=== PATIENT | male | born 1955 | race Caucasian/White ===

== ENCOUNTER 2018-12-08 04:42 | Inpatient (IN) | payer BC ==
[2018-12-08] MEDS ORDERED: Acetaminophen 500 MG TAB ONE (05:23)
[2018-12-08 05:41] LABS: Band 11 % (5-11); Hemoglobin 16.2 g/dL (14.0-18.0); Lymphocytes 2 % (21-51); MDiff Complete? YES; Mean Corpuscular Hemoglobin 31.8 pg (27.0-31.0); Mean Corpuscular Volume 93.3 fL (78.0-98.0); Mean Platelet Volume 8.6 fL (7.4-10.4); Monocytes 6 % (0-10); Neutrophil 81 % (42-75); Platelet Count 142 thou/uL (130-400); Platelet Morphology Comment Appears Adequate; RBC Morphology Normal; Red Blood Cell (RBC) Count 5.11 mill/uL (4.70-6.10)
[2018-12-08 05:54] LABS: ALT (SGPT) 16 U/L (8-55); AST (SGOT) 12 U/L (5-34); Albumin 3.9 g/dL (3.4-4.8); Alkaline Phosphatase 71 U/L (40-110); Anion Gap 13 mmol/L (10-20); BUN (Urea Nitrogen) 12 mg/dL (8.4-25.7); Bilirubin, Total 1.2 mg/dL (0.2-1.2); CK (CPK) 124 U/L (30-200); Calc. Creatinine Clearance 0 mL/min (70-130); Calcium 8.8 mg/dL (7.8-10.44); Carbon Dioxide 23 mmol/L (23-31); Chloride 101 mmol/L (98-107); Estimated GFR-MDRD 62; Globulin 2.7 g/dL (2.4-3.5); Glucose 104 mg/dL (80-115); Potassium 3.9 mmol/L (3.5-5.1); Protein, Total 6.6 g/dL (5.8-8.1); Sodium 133 mmol/L (136-145)
[2018-12-08] MEDS ORDERED: cefTRIAXone\\ROCEPHIN 1 GM VIAL ONE (06:32)
[2018-12-08 06:57] LABS: Bilirubin Negative (Negative); Blood, Urine 1+ (Negative); Clarity Clear (Clear); Glucose, Urine (Dipstick) Normal (Negative); Leukocyte 500 Leu/uL (Negative); Nitrite Negative (Negative); Protein, Urine (Dipstick) 10 mg/dL (Neg-Trace); Squamous Epithelial 0-3 HPF (0-3); Urobilinogen Normal mg/dL (Less than 2)
[2018-12-08 06:58] LABS: Bacteria/HPF 1+ HPF (None Seen)
--- NOTE | 2018-12-08 07:53 | RAD ---
EXAM: Single view of the chest HISTORY: Chest pain COMPARISON: None FINDINGS: Single view of the chest shows a normal sized cardiomediastinal silhouette. There is no marzena dence of consolidation, mass, or pleural effusion. The bones are unremarkable. IMPRESSION: No evidence of acute cardiopulmonary disease
--- NOTE | 2018-12-08 08:11 | CT ---
CT ANGIOGRAM THORAX WITH IV CONTRAST AND 3-D RECONSTRUCTIONS CLINICAL INDICATION: Dyspnea and associated bilateral lower extremity edema. COMPARISON: None FINDINGS: Pulmonary arteries: There is suboptimal opacification of the subsegmental pulmonary arteries, but no filling defects are seen in the central or segmental pulmonary arteries to suggest a pulmonary embolus. Aorta: Vascular calcifications are seen in the thoracic aorta, but the thoracic aorta is normal in ca liber without evidence of an aortic dissection. Lungs: Calcified granuloma is seen in the right upper lobe. No noncalcified pulmonary nodule, mass, o r pleural effusion is seen within the lungs bilaterally. No consolidation is seen. Mediastinum: Vascular calcifications are seen in the coronary arteries. No enlarged lymph nodes are s een by CT size criteria. Calcified right hilar lymph nodes are identified related to prior granulomatous disease. Thyroid gland: Grossly normal in appearance where visualized. Osseous structures: Degenerative changes are seen in the spine. Chest wall: No abnormality visualized. Upper abdomen: There is evidence of cholelithiasis partially imaged. There is mild diminished attenua tion of the visualized liver suggesting fatty infiltration. IMPRESSION: 1. No CT evidence of a pulmonary embolus involving the central or segmental pulmonary arteries. 2. No pleural effusion, consolidation, or pulmonary nodule is seen in the lungs bilaterally. 3. Cholelithiasis. 4. Fatty infiltration of the liver. 5. Vascular calcifications in the coronary arteries as well as involving the thoracic aorta.
--- NOTE | 2018-12-08 08:20 | CT ---
CT ABDOMEN AND PELVIS WITHOUT IV CONTRAST: INDICATION: Dyspnea. Abdominal pain. FINDINGS: Lung bases are clear. Liver, spleen, and pancreas are unremarkable. There are several small calcified gallstones seen in a mildly contracted gallbladder. No pericholecy stic edema or inflammation apparent. Adrenal glands unremarkable. A 3 cm cyst from the inferior pole of the right kidney. No hydronephrosis. A 2 cm cyst from the superior left kidney. Ureters are normal caliber. The bladder is mildly distended. There is evidence of mild bladder wall thickening and mild pericyst ic inflammatory haziness. Cystitis and/or prostatitis should be excluded. The prostate does not michelle ear significantly enlarged, although the seminal vesicles are prominent. Small bowel loops are normal caliber. Appendix appears normal. Colon unremarkable. Aorta normal ca liber. No adenopathy. IMPRESSION: 1. The urinary bladder shows mild bladder wall thickening and mild pericystic inflammatory change. The seminal vesicles are prominent. Rule out urinary tract infection/cystitis prostatitis. 2. Small renal cystic lesions as described. 3. Cholelithiasis. POS: SARAH
[2018-12-08 08:44] LABS: Troponin I Less than 0.010 ng/mL (< 0.028)
[2018-12-08] MEDS ORDERED: Bisacodyl 10 MG SUPP PR PRN (09:24)
[2018-12-08] MEDS ORDERED: Senokot S 8.6-50 MG TAB PO PRN (09:24)
[2018-12-08] MEDS ORDERED: Ondansetron PF 4 MG/2 ML Vial IVP PRN (09:24)
[2018-12-08] MEDS ORDERED: HYDROcodone/Acetaminophen 5/325 mg Tablet PO PRN (09:24)
[2018-12-08] MEDS ORDERED: Guaifenesin DM 100-10/5 ML UDCUP PO PRN (09:24)
[2018-12-08] MEDS ORDERED: Acetaminophen 325 MG TAB PO PRN (09:24)
[2018-12-08] MEDS ORDERED: ISOVUE-370 76%-LOCM 1 ML ONE (10:13)
[2018-12-08] MEDS ORDERED: Vancomycin HCl 1 GM in Premix Bag 1 BAG IVPB SCH (15:00)
[2018-12-08 15:38] VITALS: BMI 48.1
[2018-12-08] MEDS: cefTRIAXone\\ROCEPHIN 2 GM in Sodium Chloride 0.9% 100 ML IVPB SCH (16:22)
[2018-12-08] MEDS: Sodium Chloride 0.9% 1,000 ML IV SCH ×2 (16:28→22:14)
[2018-12-08] MEDS: methylPREDNISolone Sod Succ 40 MG VIAL IVP SCH ×2 (16:28→21:54)
--- NOTE | 2018-12-08 18:09 | HP ---
REASON FOR ADMISSION: Sepsis, UTI. HISTORY OF PRESENTING ILLNESS: The patient gives history of not feeling well for last 1 week or so. He has been getting off and on chills with rigors and sweating. Last night, this got worse. The patient also developed shortness of breath early this morning. He wears a CPAP machine and removed it this morning and his shortness of breath got even worse. He has no complaints of cough or expectoration. The patient does admit that he has burning sensation at the end of passing urine. He felt feverish at home. On arrival here, had a temperature of 103 in the ER. No complaints of chest pain or palpitation. No complaints of back pain. No complaints of orthopnea or palpitations. PAST MEDICAL AND SURGICAL HISTORY: History of [place] with three stents placed in 2008, obstructive sleep apnea on CPAP, obesity, back surgery for L5 vertebra, left shoulder surgery, and tonsillectomy. CURRENT MEDICATIONS: 1. Aspirin 81 mg p.o. daily. 2. Carvedilol extended release 25 mg daily. 3. Plavix 75 mg daily. The patient takes two medications for cholesterol he does not recall. The patient goes to [facility] and we will try to obtain the same. ALLERGIES: NO KNOWN DRUG ALLERGIES. PERSONAL HISTORY: Quit smoking 3 months back prior to which has smoked 1 pack a day for almost 30 years. Does not abuse alcohol or drugs. FAMILY HISTORY: Both parents are . Mother at the age of 62 years from unknown cancer. Father was a smoker and had COPD/emphysema, at the age of 76 years from complications from it. CODE STATUS: Full. Power of commercial real estate attorney is his daughter, Ms. Mckeon. Number to reach her is [phone]. REVIEW OF SYSTEMS: CONSTITUTIONAL: Negative for weight loss or gain, ability to conduct usual activities. SKIN: Negative for rash, itching. EYES: Negative for double vision, pain. ENT/MOUTH: Negative for nose bleeding, neck stiffness, pain, tenderness. CARDIOVASCULAR: Negative for palpitations, dyspnea on exertion, orthopnea. RESPIRATORY: Negative for shortness of breath, wheezing, cough, hemoptysis, fever or night sweats. GASTROINTESTINAL: Negative for poor appetite, abdominal pain, heartburn, nausea , vomiting, constipation, or diarrhea. GENITOURINARY: Negative for urgency, frequency, dysuria, nocturia. MUSCULOSKELETAL: Negative for pain, swelling. NEUROLOGIC/PSYCHIATRIC: Negative for anxiety, depression. ALLERGY/IMMUNOLOGIC: Negative for skin rash, bleeding tendency. PHYSICAL EXAMINATION: GENERAL: The patient is a 63-year-old male, who is currently not in any acute distress. VITAL SIGNS: Blood pressure 144/86, pulse 96 per minute, respiratory rate is 24 per minute, temperature on arrival was 103.1 degrees Fahrenheit, and saturating 98% on room air. NECK: Supple. No elevated JVD. HEENT: Eyes; extraocular muscles are intact. Pupils are reacting to light. Oral cavity, mucous membranes are dry. No exudates or congestion. CARDIOVASCULAR: S1 and S2 heard. Regular rhythm. RESPIRATORY: Air entry 1+ bilateral. Scattered rhonchi plus bilateral. No wheezes. No rales. There is rhonchi plus. ABDOMEN: Soft. Bowel sounds heard. No tenderness, rigidity, or guarding. No CV angle tenderness. EXTREMITIES: There is nonpitting edema in both lower extremities. There is thickening of skin on the alves on both lower extremities. Peripheral pulses are 1+ bilateral no ischemic ulcerations or gangrene. CENTRAL NERVOUS SYSTEM: No gross focal deficits noted. The patient is alert, awake, and oriented well. PSYCHIATRIC: The patient's mood is euthymic. No hallucinations or delusions. LABORATORY DATA: EKG done shows normal sinus rhythm at 97 beats per minute. No gross ST-T wave changes. There is low-voltage EKG seen. CT abdomen and pelvis without contrast done shows mild bladder wall thickening with pericystic inflammatory change, seminal vesicles are prominent. Findings might suggest cystitis versus prostatitis. Small renal cystic lesions. Cholelithiasis with no evidence of cholecystitis. CT angio chest done shows no evidence of PE. No pleural effusion, consolidation, or pulmonary nodule were seen. Cholelithiasis, fatty liver of liver. There is vascular calcification of the coronary arteries as well as involving thoracic aorta. White count of 18, H and H 16 and 47, platelet count 142, with 81% neutrophils, 11% bands. Electrolytes stable. BUN 12, creatinine 1.1. Troponin x2 negative. Liver enzymes are within normal limits. Albumin is 3.9. Stat cortisol levels at 31.8. BNP 30. CLINICAL IMPRESSION AND PLAN: The patient will be admitted to medical floor for sepsis, urinary tract infection, possible prostatitis. Blood and urine cultures have been obtained. We will place him on ceftriaxone and vancomycin, a small dose of steroids, Solu-Medrol 20 mg IV q.8 hourly, DuoNeb q.6 hourly. He has received 3 L of IV fluid in the ER and will continue him on normal saline at 100 mL/hour. We will obtain consultation with Dr. Christensen as well. The patient likely will need outpatient Urology appointment. Job ID: [id number] MTDD
--- NOTE | 2018-12-08 21:44 | CON ---
DATE OF CONSULTATION: 12/08/2018 REASON FOR CONSULTATION: Shortness of breath, some cough, edema, and urinary symptoms. HISTORY OF PRESENT ILLNESS: A 63-year-old with history of obesity, sleep apnea, CHF, chronic back pain with prior surgeries, who was brought into the hospital after a few days of worsening dyspnea, chills, and genitourinary symptoms with dysuria and difficulty with urination. No headaches, visual symptoms. No abdominal pain. No diarrhea or constipation. No bleeding. No joint symptoms. PAST MEDICAL HISTORY: Sleep apnea, obesity, CHF, back surgeries, shoulder surgery, tonsillectomy. SOCIAL HISTORY: Current smoker. Drinks socially. Lives in [place]. 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 ALLERGIES: NONE. MEDICATIONS: At home include: 1. Plavix. 2. Coreg. 3. Aspirin. CURRENT MEDICATIONS: 1. Tylenol. 2. [place]. 3. DuoNeb. 4. Dulcolax. 5. ceftriaxone. 6. Enoxaparin. 7. Famotidine. 8. Zofran. 9. Pneumovax. 10. Vancomycin. PHYSICAL EXAMINATION: VITAL SIGNS: Temperature 98.9, in the emergency room temperature was 99.9 up to 103.1. SKIN: Without lesions. LYMPHATICS: No lymphadenopathy. HEENT: Ocular movements conjugate. Oral cavity unchanged without any abnormalities. Numerous teeth in place with quite a bit of decay and gum disease. NECK: Supple. No jugular vein distention or carotid bruits. LUNGS: Symmetric air entry. No crackles or wheezing. S1, S2. Regular rate without murmurs. ABDOMEN: Quite protuberant with prominent panniculus. The bladder does not appear to be distended. No joint inflammatory activity. GENITOURINARY: Genital examination was normal. EXTREMITIES: He is able to move extremities. There is some element of stasis dermatitis in lower extremities. Pulses are 1+ in dorsalis pedis. There is 1+ edema. Plantar response are flexor. Able to move extremities equally. NEUROLOGIC: He is awake, oriented, follows commands. LABORATORY DATA: White cell count 18,000 hemoglobin 16, platelets 142 with 81% neutrophils. Sodium 133. Other elements of chemistry are within normal limits. Cortisol normal. Urinalysis with 6-10 wbc's. Microbiology was pending cultures at this point in time. Reports, we have a CT angio which did not show any pulmonary embolism. No infiltrates. Abdomen and pelvis CT with mild distended bladder wall thickening noted. Pericystic inflammatory haziness, seminal vessels were prominent. ASSESSMENT: 1. Obesity. 2. Hypoventilation syndrome. 3. Congestive heart failure. 4. Cystitis with possible transient bacteremia. He also has some element of wheezing in the respiratory tract exam and may have bronchitis or some element of hyperreactive airway syndrome. 5. He may have urinary retention. We will have the nurse check a postvoid residual bladder scan. If confirmed will need management for BPH. 6. Alternate hypothesis would be a respiratory tract or intraabdominal inflammatory process, but that appears to be less likely. FU culture results and hopefully transition to oral antimicrobial regimen. Job ID: [id number] [facility]OL[facility] HEALTHMichelle
[2018-12-08] MEDS: Famotidine 20 MG TAB PO SCH (21:53)
--- NOTE | 2018-12-08 21:58 | ULT ---
ULTRASOUND DOPPLER DUPLEX VENOUS BILATERAL LOWER EXTREMITIES: DATE: 12/08/2018 HISTORY: 63-year-old male with bilateral lower extremity edema TECHNIQUE: Grayscale, color-flow, and spectral analysis, of major veins of bilateral lower extremities. FINDINGS: There is demonstration of blood flow with normal compressibility, of the bilateral common femoral, pr ofunda femoral, greater saphenous, femoral, popliteal, and posterior tibial, veins. IMPRESSION: Negative. No deep venous thrombosis of bilateral lower extremities.
[2018-12-09] MEDS: Vancomycin HCl 1.5 GM in Sodium Chloride 0.9% 250 ML 300 ML IVPB SCH ×2 (03:27→15:32)
[2018-12-09] MEDS: Sodium Chloride 0.9% 1,000 ML IV SCH ×2 (05:30→15:32)
[2018-12-09] MEDS: methylPREDNISolone Sod Succ 40 MG VIAL IVP SCH ×3 (05:31→20:48)
[2018-12-09 06:18] LABS: #Monocytes 0.5 thou/uL (0.11-0.59); #Neutrophils 13.5 thou/uL (1.40-6.50); %Basophils 0.1 % (0.0-1.0); %Lymphocytes 6.9 % (21.0-51.0); %Neutrophils 89.9 % (42.0-75.0); Hemoglobin 14.6 g/dL (14.0-18.0); Mean Corpuscular HGB CONC 33.4 g/dL (32.0-36.0); Mean Corpuscular Hemoglobin 32.3 pg (27.0-31.0); Mean Corpuscular Volume 96.9 fL (78.0-98.0); Mean Platelet Volume 7.3 fL (7.4-10.4); Platelet Count 165 thou/uL (130-400); RBC Distribution Width 12.9 % (11.5-14.5); Red Blood Cell (RBC) Count 4.53 mill/uL (4.70-6.10)
[2018-12-09 06:40] LABS: Anion Gap 12 mmol/L (10-20); BUN (Urea Nitrogen) 11 mg/dL (8.4-25.7); Calc. Creatinine Clearance 206 mL/min (70-130); Calcium 8.4 mg/dL (7.8-10.44); Carbon Dioxide 19 mmol/L (23-31); Chloride 105 mmol/L (98-107); Estimated GFR-MDRD 89; Glucose 143 mg/dL (80-115); Potassium 4.3 mmol/L (3.5-5.1); Sodium 132 mmol/L (136-145)
[2018-12-09] MEDS: Famotidine 20 MG TAB PO SCH ×2 (08:10→20:48)
[2018-12-09] MEDS: Enoxaparin Sodium 40 MG/0.4 ML SYRINGE SC SCH (08:10)
--- NOTE | 2018-12-09 12:49 | PDOC.HOSPP ---
- Subjective Encounter Date: 12/09/18 Encounter Time: 11:00 Subjective: feels better, no abd pain tolerating oral diet - Objective Vital Signs & Weight: Vital Signs (12 hours) Temp Pulse Resp BP BP Pulse Ox 12/09/18 11:21 98.2 F 63 17 141/81 H 97 12/09/18 10:53 98.2 F 60 18 141/81 H 97 12/09/18 08:00 95 12/09/18 07:34 98.2 F 70 17 127/79 95 12/09/18 06:38 67 14 98 12/09/18 04:00 98.2 F 59 L 20 124/79 96 Weight Weight 365 lb I&O: 12/08/18 12/09/18 12/10/18 06:59 06:59 06:59 Intake Total 1700 240 Output Total 250 Balance 1450 240 Result Diagrams: 12/09/18 05:22 12/09/18 05:21 Hospitalist ROS - Medication Medications: Active Medications Generic Name Dose Route Start Last Admin Trade Name Marcial PRN Reason Stop Dose Admin Albuterol/Ipratropium 3 ml 12/08/18 13:00 12/09/18 06:38 Duoneb NEB 3 ml [id number] MARY Administration Enoxaparin Sodium 40 mg 12/09/18 09:00 12/09/18 08:10 Lovenox SC 40 mg 0900 MARY Administration Famotidine 20 mg 12/08/18 21:00 12/09/18 08:10 Pepcid PO 20 mg BID MARY Administration Ceftriaxone Sodium 2 gm/ 100 mls @ 200 mls/hr 12/08/18 14:00 12/08/18 16:22 Sodium Chloride IVPB Not Given Q24HR MARY Sodium Chloride 1,000 mls @ 100 mls/hr 12/08/18 09:24 12/09/18 05:30 Normal Saline 0.9% IV 1,000 mls .Q10H MARY Administration Vancomycin HCl 1.5 gm/ Sodium 300 mls @ 200 mls/hr 12/09/18 04:00 12/09/18 03 :27 Chloride IVPB 300 mls 0400,1600 MARY Administration Methylprednisolone Sodium Succinate 20 mg 12/08/18 14:00 12/09/18 05:31 Solu-Medrol IVP 20 mg Q8HR MARY Administration Sodium Chloride 10 ml 12/08/18 21:00 12/09/18 08:11 Flush - Normal Saline IVF 10 ml Q12HR MARY Administration - Exam General Appearance: awake alert Eye: PERRL, anicteric sclera ENT: no oropharyngeal lesions, moist mucosa Neck: supple, no JVD Heart: RRR, no murmur Respiratory: no wheezes, no rales Gastrointestinal: soft, non-tender, non-distended, normal bowel sounds Extremities: no cyanosis, no edema Neurological: cranial nerve grossly intact, no focal deficits Psychiatric: normal affect, A&O x 3 Hosp A/P (1) Sepsis Code(s): A41.9 - SEPSIS, UNSPECIFIED ORGANISM Status: Acute Qualifiers: Sepsis type: sepsis due to unspecified organism (2) UTI (urinary tract infection) Status: Acute Qualifiers: Urinary tract infection type: acute cystitis Hematuria presence: without hematuria Qualified Code(s): N30.00 - Acute cystitis without hematuria (3) HTN (hypertension) Code(s): I10 - ESSENTIAL (PRIMARY) HYPERTENSION Status: Chronic Qualifiers: Hypertension type: essential hypertension Qualified Code(s): I10 - Essential (primary) hypertension (4) Morbid obesity with BMI of 45.0-49.9, adult Code(s): E66.01 - MORBID (SEVERE) OBESITY DUE TO EXCESS CALORIES; Z68.42 - BODY MASS INDEX (BMI) 45.0-49.9, ADULT Status: Chronic (5) TEVIN (obstructive sleep apnea) Code(s): G47.33 - OBSTRUCTIVE SLEEP APNEA (ADULT) (PEDIATRIC) Status: Chronic (6) CAD (coronary artery disease) Code(s): I25.10 - ATHSCL HEART DISEASE OF [place] CORONARY ARTERY W/O ANG PCTRS Status: Chronic Qualifiers: Coronary Disease-Associated Artery/Lesion type: [place] artery [place] vs. transplanted heart: [place] heart Associated angina: without angina Qualified Code(s): I25.10 - Atherosclerotic heart disease of [place] coronary artery without angina pectoris - Plan is on ceftriaxone and vanc prelim blood and urine cs are -ve likely has prostatitis?, will need outpt urology appt wbc down to 15k this am to ambulate as tolerated in hallway cpap prn sleep continue iv hydration till am
[2018-12-09] MEDS: cefTRIAXone\\ROCEPHIN 2 GM in Sodium Chloride 0.9% 100 ML IVPB SCH (13:52)
--- NOTE | 2018-12-09 14:43 | PRG ---
DATE OF SERVICE: 12/09/2018 SUBJECTIVE: Mr. Jackson is feeling a little better, still with mild dyspnea, more cough than previously. No sputum production. No abdominal pain. No genitourinary symptoms at this time. OBJECTIVE: VITAL SIGNS: Afebrile, blood pressure 140/80, pulse 63, respirations 17, O2 saturation 100. GENERAL: Appears in no distress. HEENT: Ocular movements conjugate. LUNGS: Symmetric air entry. No wheezing noted today. No crackles. HEART: S1, S2. Regular rate. ABDOMEN: Soft, not distended. LABORATORY DATA: White cell count 15,000, hemoglobin 14, platelets 165 with 89% neutrophils. Sodium 132. Creatinine 0.87. Blood culture, no growth. Urine culture, no growth in 24 hours. ASSESSMENT AND DISCUSSION: Obesity hypoventilation syndrome, congestive heart failure, possible cystitis. No evidence of bacteremia. It seems like the core of his symptoms are related to respiratory tract. Possibility of CHF versus hyperreactive airway disease is considered. We will check echocardiogram. It is likely antimicrobials will be able to be discontinued soon. Job ID: [id number]
[2018-12-09] MEDS ORDERED: FLU VACC QS2019-20(6MOS UP)/PF 60 MCG/0.5 ML SYRINGE IM ONE (16:00)
[2018-12-10 04:09] LABS: Vancomycin, Trough 9.1 ug/mL
[2018-12-10] MEDS: Vancomycin HCl 1.5 GM in Sodium Chloride 0.9% 250 ML 300 ML IVPB SCH (04:30)
[2018-12-10] MEDS: Sodium Chloride 0.9% 1,000 ML IV SCH ×2 (04:58→13:59)
[2018-12-10] MEDS: methylPREDNISolone Sod Succ 40 MG VIAL IVP SCH ×2 (04:58→13:54)
[2018-12-10 07:04] LABS: #Lymphocytes 1.2 thou/uL (1.20-3.40); #Monocytes 0.7 thou/uL (0.11-0.59); #Neutrophils 11.6 thou/uL (1.40-6.50); %Basophils 0.1 % (0.0-1.0); %Eosinophils 0.1 % (0.0-10.0); %Lymphocytes 8.8 % (21.0-51.0); %Monocytes 5.2 % (0.0-10.0); %Neutrophils 85.7 % (42.0-75.0); Hemoglobin 14.7 g/dL (14.0-18.0); Mean Platelet Volume 7.7 fL (7.4-10.4); Platelet Count 180 thou/uL (130-400); RBC Distribution Width 12.9 % (11.5-14.5); Red Blood Cell (RBC) Count 4.59 mill/uL (4.70-6.10); White Blood Cell (WBC) Count 13.6 thou/uL (4.8-10.8)
[2018-12-10 07:23] LABS: Anion Gap 12 mmol/L (10-20); BUN (Urea Nitrogen) 15 mg/dL (8.4-25.7); Calc. Creatinine Clearance 211 mL/min (70-130); Calcium 8.6 mg/dL (7.8-10.44); Carbon Dioxide 21 mmol/L (23-31); Chloride 106 mmol/L (98-107); Estimated GFR-MDRD Greater than 90; Glucose 137 mg/dL (80-115); Potassium 4.6 mmol/L (3.5-5.1); Sodium 134 mmol/L (136-145)
[2018-12-10 07:32] VITALS: BP 128/84; TEMP 97.8
[2018-12-10] MEDS: Enoxaparin Sodium 40 MG/0.4 ML SYRINGE SC SCH (07:47)
[2018-12-10] MEDS: Famotidine 20 MG TAB PO SCH (07:47)
[2018-12-10] MEDS: cefTRIAXone\\ROCEPHIN 2 GM in Sodium Chloride 0.9% 100 ML IVPB SCH (13:54)
--- NOTE | 2018-12-10 22:01 | DIS ---
DATE OF ADMISSION: 12/08/2018 DATE OF DISCHARGE: 12/10/2018 DISCHARGE DIAGNOSES: 1. Sepsis. 2. Urinary tract infection with focus likely being prostate. 3. Hypertension. 4. Morbid obesity. 5. Obstructive sleep apnea. 6. Coronary artery disease. HISTORY OF PRESENT ILLNESS: This patient is a 63-year-old male, who presented via the emergency department with the complaint of feeling poorly for a week with rigors, chills, dysuria. In the ER, he was noted to have a temperature of 103. Please see the full dictated H and P from Dr. Dejesus for further details. The patient has a history of smoking a pack a day for 30 years. HOSPITAL COURSE: The patient was admitted to the hospital, had initial imaging, which included a CTA of the chest and thorax, which was negative except for showing some fatty infiltration of the liver. CT abdomen and pelvis revealed urinary bladder to have some mild bladder wall thickening, mild pericystic inflammatory change, prominent seminal vesicles concerning for urinary tract infection or prostatitis. The patient was started on broad-spectrum antibiotics and was seen in consultation by Dr. Christensen. He was not entirely sure this truly reflected an infection, although the patient's initial white blood cell count was 18,000 and he had the 103 fever. Over subsequent days, the white count decreased to 15,000 and 13,600. He remained afebrile. Of note, the patient did receive some initial low-dose Solu-Medrol along with his antibiotics and fluids. His symptoms resolved and he appeared to be back to baseline. Dr. Christensen did order an echocardiogram, which was technically difficult. An EF could not be obtained specifically, but it appeared grossly normal. With that, the patient was felt to be stable for discharge to home. Dr. Christensen was in agreement. PHYSICAL EXAMINATION: VITAL SIGNS: On the day of discharge, temperature is 97.8, pulse 66, respirations 14, O2 saturation 97% on room air, BP 128/84. The patient is morbidly obese with a BMI of 48.2. GENERAL: He is awake and alert. HEART: Regular rate and rhythm. LUNGS: Diminished, but no wheezes, or rales are noted. ABDOMEN: Soft, nontender, and nondistended. Positive bowel sounds. No masses. No organomegaly. EXTREMITIES: No cyanosis, clubbing, or edema. DISPOSITION: The patient will be discharged to home. We will have no new dietary restrictions. ACTIVITY: As tolerated. DISCHARGE MEDICATIONS: He will remain on his usual home medications. He will also be on Levaquin 500 mg one p.o. daily for 14 days. He will also be encouraged to take a probiotic. His activity is as tolerated. FOLLOWUP: He should follow up with Dr. Olivas first part of the week and he can return to the hospital at anytime should he feel the need to do so. Time spent in discharge activities was 33 min. Job ID: [id number] [facility] CENTERMichelle
== END 2018-12-10 18:33 | disposition home or self-care (01) | DRG 872 ==
LOC: ERS 04:42 → OBSVTOIN 07:37 → ERHOLD 07:37 → T4-A 15:10
PROVIDERS: ADMIT Internal Medicine; ATTEND Internal Medicine
PROC: 3E0234Z Introduction of Serum, Toxoid and Vaccine into Muscle, Percutaneous Approach (ICD-10-PCS; principal; 2018-12-09)
PROC: 3E02340 Introduction of Influenza Vaccine into Muscle, Percutaneous Approach (ICD-10-PCS; 2018-12-10)
DX: A41.9 Sepsis, unspecified organism (principal); E66.2 Morbid (severe) obesity with alveolar hypoventilation; N30.00 Acute cystitis without hematuria; Z68.42 Body mass index [BMI] 45.0-49.9, adult; I25.10 Atherosclerotic heart disease of native coronary artery without angina pectoris; N41.9 Inflammatory disease of prostate, unspecified; F17.210 Nicotine dependence, cigarettes, uncomplicated; I50.9 Heart failure, unspecified; Z99.89 Dependence on other enabling machines and devices; Z79.899 Other long term (current) drug therapy; Z95.5 Presence of coronary angioplasty implant and graft; I25.2 Old myocardial infarction; Z79.82 Long term (current) use of aspirin; Z23 Encounter for immunization; Z79.02 Long term (current) use of antithrombotics/antiplatelets
CPT/HCPCS: 36415; 71045; 71275; 74176; 80048; 80053; 80202; 81003; 81015; 82533; 82550; 83605; 83880; 84484; 85025; 87040; 87086; 87804; 93005; 93306; 93970; 94640; 96360; 96361; 96365; J0696; J1650; J2920; J3370; J3490; J7050; J7620; Q9966

== ENCOUNTER 2022-11-04 11:26 | Outpatient (CLI) | payer OTHER | END 2022-11-04 11:27 | disposition home or self-care (01) | LOC: RAD 11:26 | PROVIDERS: ATTEND Family Medicine | DX: J45.909 Unspecified asthma, uncomplicated (principal); E78.5 Hyperlipidemia, unspecified; J98.4 Other disorders of lung | CPT/HCPCS: 71046 ==

== ENCOUNTER 2025-01-12 06:01 | Emergency (ER) | payer BC ==
[2025-01-12 06:54] LABS: #Basophils 0.03 10x3/uL (0.0-0.2); #Eosinophils 0.07 10x3/uL (0.0-0.7); #Monocytes 0.78 10x3/uL (0.11-0.59); #Neutrophils 6.55 10x3/uL (1.40-6.50); %Basophils 0.3 % (0.0-1.0); %Eosinophils 0.8 % (0.0-10.0); %Lymphocytes 13.6 % (21.0-51.0); %Monocytes 9.0 % (0.0-10.0); %Neutrophils 75.8 % (42.0-75.0); Hematocrit 49.6 % (42.0-52.0); Hemoglobin 16.3 g/dL (14.0-18.0); Mean Corpuscular Hemoglobin 31.0 pg (27.0-31.0); Mean Corpuscular Volume 94.5 fL (78.0-98.0); Platelet Count 169 10x3/uL (130-400); Red Blood Cell (RBC) Count 5.25 mill/uL (4.70-6.10); White Blood Cell (WBC) Count 8.65 10x3/uL (4.8-10.8)
[2025-01-12 07:08] LABS: ALT (SGPT) 24 U/L (Less than 45); AST (SGOT) 22 U/L (11-34); Albumin 4.0 g/dL (3.1-4.5); Alkaline Phosphatase 50 U/L (40-110); Anion Gap 16 mmol/L (10-20); BUN (Urea Nitrogen) 8 mg/dL (8.4-25.7); Bilirubin, Total 0.7 mg/dL (0.3-1.2); Calc. Creatinine Clearance 0 mL/min (70-130); Calcium 9.3 mg/dL (7.8-10.44); Carbon Dioxide 23 mmol/L (23-31); Chloride 102 mmol/L (98-107); Globulin 3.4 g/dL (2.4-3.5); Glucose 113 mg/dL (80-115); Potassium 4.0 mmol/L (3.5-5.1); Sodium 137 mmol/L (136-145)
[2025-01-12 07:48] LABS: Actual Bicarbonate (HCO3v) 25.8 mEq/L (22-28); Base Excess 0.6 mEq/L (-2.0 to +3.0); Calcium, Ionized (venous) 1.06 mmol/L (1.16-1.32); Chloride (VBG) 101 mmol/L (98-106); Hematocrit-VBG 48 % (42.0-52.0); Hemoglobin (Hb) 16.3 g/dL (12.6-17.4); Potassium (VBG) 4.11 mmol/L (3.70-5.30); Sodium 136 mmol/L (133-146)
[2025-01-12] MEDS ORDERED: Albuterol 2.5 MG (0.5 mL) NEB ONE (08:26)
[2025-01-12] MEDS ORDERED: cefTRIAXone (ROCEPHIN) 2 GM VIAL ONE (08:27)
[2025-01-12] MEDS ORDERED: Furosemide 20 MG (2 mL) VIAL ONE (08:27)
[2025-01-12] MEDS ORDERED: Ipratropium Bromide 2.5 ml Neb ONE (08:27)
[2025-01-12] MEDS ORDERED: Azithromycin 500 MG VIAL ONE (08:27)
[2025-01-12] MEDS ORDERED: Iopamidol-370 76% 500 ML MDV (1 ML CHARGE) ONE (11:47)
== END 2025-01-12 10:02 | disposition home or self-care (01) ==
LOC: ERS 06:01
DX: J18.9 Pneumonia, unspecified organism (principal); I88.8 Other nonspecific lymphadenitis; K80.20 Calculus of gallbladder without cholecystitis without obstruction; R60.0 Localized edema; I25.10 Atherosclerotic heart disease of native coronary artery without angina pectoris; I11.0 Hypertensive heart disease with heart failure; I50.9 Heart failure, unspecified; F17.210 Nicotine dependence, cigarettes, uncomplicated; Z79.82 Long term (current) use of aspirin; Z79.02 Long term (current) use of antithrombotics/antiplatelets; Z79.899 Other long term (current) drug therapy
CPT/HCPCS: 36415; 71045; 71275; 80053; 82805; 83605; 83880; 84484; 85025; 85379; 87040; 87428; 93005; 94760; 96365; 96366; 96367; 96375; J0456; J0696; J1940; J2919; J7611; J7644; Q9967